=== PATIENT | female | born 1980 | race Caucasian/White ===

== ENCOUNTER 2020-08-17 07:58 | Outpatient (CLI) | payer BC, SELFPAY ==
--- NOTE | 2020-08-17 09:18 | ECG_ITS ---
Measurements Intervals [place] Rate: 61 P: 19 RI: 156 QRS: 18 QRSD: 105 T: 8 QT: 391 QTc: 396 Interpretive Statements SINUS RHYTHM WITH SINUS ARRHYTHMIA DELAYED PRECORDIAL R/S TRANSITION BASELINE ARTIFACT- I, III, AVR, AVL, AVF BORDERLINE ECG Electronically Signed On 08-17-2020 9:57:26 [employer] by Silvestre Mrecer D.O.
[2020-08-17 09:54] LABS: Basophils Percent Auto 0.7 % (0.2-1.2); Eosinophils Absolute Auto 0.1 K/mm3 (0-0.3); Eosinophils Percent Auto 1.9 % (0-4.4); Immature Granulocyte Absolute 0.01 K/mm3 (0.00-0.031); Immature Granulocyte Percent A 0.2 % (0-0.5); Lymphocytes Absolute Auto 1.88 K/mm3 (0.9-3.2); Lymphocytes Percent Auto 33.2 % (18.3-44.2); Mean Corpuscular HGB Conc 31.7 g/dl (32-36); Mean Corpuscular Hemoglobin 26.3 pg (26-34); Mean Platelet Volume 10.2 fl (7.4-10.4); Monocytes Absolute Auto 0.4 K/mm3 (0.1-0.6); Monocytes Percent Auto 7.1 % (2.6-8.5); Neutrophils Absolute Auto 3.2 K/mm3 (1.3-6.7); Neutrophils Percent Auto 56.9 % (45.5-73.1); Platelet Count Result 267 k/mm3 (150-375); Red Blood Count 4.94 M/mm3 (4.2-5.4); Red Cell Distribution Width 13.9 % (11.5-14.5); White Blood Count 5.7 K/mm3 (4.5-10.0)
[2020-08-17 10:05] LABS: Partial Thromboplastin Time 30.8 SECONDS (22.3-36.8)
[2020-08-17 10:07] LABS: Alanine Aminotransferase 23 U/L (4-35); Albumin Level 4.6 g/dL (3.5-5.1); Alkaline Phosphatase 65 U/L (38-126); Anion Gap 7 mmol/L (8-16); Aspartate Amino Transferase 28 U/L (14-36); Bilirubin,Total 0.5 mg/dL (0.2-1.3); Blood Urea Nitrogen 13 mg/dL (7-17); Carbon Dioxide 29 mmol/L (22-30); Chloride 103 mmol/L (98-107); Estimated Glomerular Filt Rate > 60; Glucose 94 mg/dL (65-105); Potassium 3.9 mmol/L (3.4-5.0); Sodium 139 mmol/L (137-145)
[2020-08-17 10:26] LABS: Prothrombin Time 13.6 Seconds (11.1-14.7)
== END 2020-08-17 07:59 | disposition home or self-care (01) ==
PROVIDERS: Visit Provider Urology
DX: N39.3 Stress incontinence (female) (male) (principal); Z01.818 Encounter for other preprocedural examination; R94.31 Abnormal electrocardiogram [ECG] [EKG]
CPT/HCPCS: 36415; 80053; 85025; 85610; 85730; 86850; 86900; 86901; 87086; 87088; 93005

== ENCOUNTER 2020-08-24 00:04 | Outpatient (CLI) | payer BC, SELFPAY ==
[2020-08-24 19:25] LABS: SARS-CoV-2 RNA PCR Negative
== END 2020-08-24 00:05 | disposition home or self-care (01) ==
LOC: ANHCOVIDDT 00:05
PROVIDERS: Visit Provider Urology
DX: Z01.818 Encounter for other preprocedural examination (principal); Z20.828 Contact with and (suspected) exposure to other viral communicable diseases
CPT/HCPCS: 87635; C9803; U0003

== ENCOUNTER 2020-08-27 00:41 | Day surgery (SDC) | payer BC, SELFPAY ==
[2020-08-17 08:13] VITALS: BP 154/98; PULSE 90; RESP 18; TEMP 36.9; O2SAT 98; BMI 37.8
--- NOTE | 2020-08-21 12:12 | P.HP_ITS ---
H&P: HPI History of Present Illness Date/Time: 08/21/20 12:12 Chief complaint: stress incontinence Narrative: Tasneem Phelps is a 39 year old female 005 is admitted for robotic supracervical hysterectomy and bilateral salpingectomy. She will also undergo a robotic sacral colpopexy and urethral sling with Dr. Haq for stress incontinence and prolapse. Risks and benefits were reviewed Review of Systems Review of Systems: All systems reviewed & are unremarkable except as noted in HPI and below PMFSH Family History Family History Mother Family history of elevated blood lipids Patient's mother is in good health Family history of malignant neoplasm of breast in first degree relative Grandparent Family history of malignant neoplasm of breast Family history of osteoporosis Family history of mental disorder Family history of osteoarthritis Family history of malignant neoplasm Family history of coronary artery disease Father Hypertension Patient's father is in good health Family history of alcoholism Family history of kidney disease Family history of coronary artery disease Family history of heart disease in male family member before age 55 Grandparent Family history of malignant neoplasm of breast Social History Social History Smoking packs per day: 1 Smoking cigarettes per day: 20.0 Years smoked: 6 Smoking pack-years: 6.00 Smoking status: Former smoker Smoking end date: 04/04/02 Alcohol intake: current Drinks per week: 4 Substance use: never Spiritual care concerns: No Meds Home Medications and Allergies Home Medications Medication Instructions Recorded Confirmed Type No Home Medications 08/17/20 08/17/20 History Allergies Allergy/AdvReac Type Severity Reaction Status Date / Time No Known Allergies Allergy Unverified 08/17/20 08:12 Exam Const: General: no acute distress Eyes: General: appearance normal, both eyes and all related structures Neck: Neck: supple and no JVD Thyroid: thyroid normal Resp: Effort & Inspection: normal respiratory effort Auscultation: clear to auscultation bilaterally Cardio: Rate: regular rate Rhythm: regular rhythm GI: Inspection: non-distended GI Palp: Yes Soft to palpation, No Tenderness to palpation present (GI) and No Guarding due to palpation present (GI) Auscultation: normal bowel sounds : General: Yes bladder normal to palpation External Female Exam: Abnormal introitus Speculum Exam - Vagina: Abnormal introitus Speculum Exam - Cerv ix: normal appearance of the cervix Bimanual exam- vagina & uterus: Uterine tenderness ( 2nd and 3rd degree prolapse is present) Bimanual Exam- Adnexa, other: normal adnexae Skin: General skin exam: no rashes or lesions noted Extrem: General: normal to inspection and no edema Psych: Mental Status: mental status grossly normal Affect: normal affect Assessment and Plan Additional Plan impression: Third-degree prolapse with stress urinary incontinence Plan: Robotic supracervical hysterectomy and bilateral salpingectomy
--- NOTE | 2020-08-25 08:09 | PM.IMHP ---
H&P: HPI History of Present Illness Date/Time: 08/25/20 08:09 Chief complaint: stress incontinence Narrative: Tasneem Phelps is a 39 year old female with POP and ANU Review of Systems Review of Systems: All systems reviewed & are unremarkable except as noted in HPI and below PMFSH Family History Family History Mother Family history of elevated blood lipids Patient's mother is in good health Family history of malignant neoplasm of breast in first degree relative Grandparent Family history of malignant neoplasm of breast Family history of osteoporosis Family history of mental disorder Family history of osteoarthritis Family history of malignant neoplasm Family history of coronary artery disease Father Hypertension Patient's father is in good health Family history of alcoholism Family history of kidney disease Family history of coronary artery disease Family history of heart disease in male family member before age 55 Grandparent Family history of malignant neoplasm of breast Social History Social History Smoking packs per day: 1 Smoking cigarettes per day: 20.0 Years smoked: 6 Smoking pack-years: 6.00 Smoking status: Former smoker Smoking end date: 04/04/02 Alcohol intake: current Drinks per week: 4 Substance use: never Spiritual care concerns: No Meds Home Medications and Allergies Home Medications Medication Instructions Recorded Confirmed Type No Home Medications 08/17/20 08/17/20 History Allergies Allergy/AdvReac Type Severity Reaction Status Date / Time No Known Allergies Allergy Unverified 08/17/20 08:12 Exam Const: General: cooperative and healthy appearing HENMT: Head: normal to inspection Mouth: Yes Normal oral and palatal mucosa present Eyes: General: appearance normal, both eyes and all related structures Resp: Effort & Inspection: normal respiratory effort and able to speak in complete sentences GI: Inspection: normal to inspection : Bimanual Exam- Adnexa, other: vaginal apex descent (0) Neuro: General: patient oriented x3 Assessment and Plan Assessment and plan (1) Uterine prolapse: Code(s): N81.4 - Uterovaginal prolapse, unspecified Status: Acute Assessment and Plan: Robotic Sacral Colpopexy (2) ANU (stress urinary incontinence, female): Code(s): N39.3 - Stress incontinence (female) (male) Status: Acute Assessment and Plan: Urethral sling
[2020-08-27] VITALS (16 sets, daily range): BP systolic 126–152; BP diastolic 68–97; PULSE 67–93; RESP 11–20; TEMP 36.3–37; O2SAT 94–100
[2020-08-27] MEDS: ACETAMINOPHEN 500 MG TABLET 1000 MG PO (06:30)
[2020-08-27] MEDS: LACTATED RINGERS 1,000 ML 30 ML IV CONT ×2 (06:35→10:28)
[2020-08-27] MEDS: KETOROLAC 15 MG/ML VIAL (*BKC) IV PUSH (06:40)
--- NOTE | 2020-08-27 06:44 | WPDHPUPDATE1 ---
History and Physical Update Update Date/Time: 08/27/20 06:44 History and Physical has been reviewed, including an updated exam of the patient. There are NO changes in the patient's condition. Risks, benefits, and alternatives have been discussed and questions answered. Patient agrees to proceed with procedure.
--- NOTE | 2020-08-27 06:58 | WPDANESEPPF ---
Anes - Initial Pre Proc Eval Procedure: Operation Date: 08/27/20 07:30 Proposed Procedures p Robotic Sacrocolpopexy with Urethral Sling - Carlos Haq MD s Robotic Assisted Supracervical Hysterectomy with Bilateral Salpingectomy - Christiano Marrufo MD Date/Time: 08/27/20 06:58 Surgeon: Carlos Haq MD Pre Op Diagnosis: stress incontinence Patient Data Age: 39 Gender: F Height: 5 ft 7 in Weight: 106.6 kg Last Vital Signs Temp 98.4 F 08/27/20 06:52 Pulse 90 08/27/20 06:52 Resp 18 08/27/20 06:52 BP 149/97 H 08/27/20 06:52 Pulse Ox 99 08/27/20 06:52 Allergies Allergy/AdvReac Type Severity Reaction Status Date / Time No Known Allergies Allergy Unverified 08/27/20 06:45 Home Medications Medication Instructions Recorded Confirmed Type No Home Medications 08/17/20 08/27/20 History Patient hx anesthesia problems: none Family hx anesthesia problems: none PMFSH Family History Family History Mother Family history of elevated blood lipids Patient's mother is in good health Family history of malignant neoplasm of breast in first degree relative Grandparent Family history of malignant neoplasm of breast Family history of osteoporosis Family history of mental disorder Family history of osteoarthritis Family history of malignant neoplasm Family history of coronary artery disease Father Hypertension Patient's father is in good health Family history of alcoholism Family history of kidney disease Family history of coronary artery disease Family history of heart disease in male family member before age 55 Grandparent Family history of malignant neoplasm of breast Social History Social History Smoking packs per day: 1 Smoking cigarettes per day: 20.0 Years smoked: 6 Smoking pack-years: 6.00 Smoking status: Former smoker Smoking end date: 04/04/02 Alcohol intake: current Drinks per week: 4 Substance use: never Living arrangements: with family Spiritual care concerns: No Anes - Eval Final PreProcedure Day of Procedure 08/27/20 06:58 Patient weight: overweight Heart: regular rate and rhythm Lungs: clear to auscultation Airway: Mallampati scale class II Neurological: alert and oriented Last oral intake: >/= 8 hours ASA classification: II Emergent: no Anesthetic plan: proceed Anesthesia type and monitoring: general ETT and standard monitoring Informed Consent: The patient's anesthetic plan and its attendant risks and benefits were discussed with the patient/family/POA. Questions were solicited and answers provided to the satisfaction of the patient/family/POA.
--- NOTE | 2020-08-27 07:18 | WPDHPUPDATE1 ---
History and Physical Update Update Date/Time: 08/27/20 07:18 History and Physical has been reviewed, including an updated exam of the patient. There are NO changes in the patient's condition. Risks, benefits, and alternatives have been discussed and questions answered. Patient agrees to proceed with procedure.
--- NOTE | 2020-08-27 07:20 | WPDHPUPDATE1 ---
History and Physical Update Update Date/Time: 08/27/20 07:20 History and Physical has been reviewed, including an updated exam of the patient. There are NO changes in the patient's condition. Risks, benefits, and alternatives have been discussed and questions answered. Patient agrees to proceed with procedure.
[2020-08-27] MEDS: ceFAZolin 2 GM/D5W 50 ML 2 GM/50 ML BAG IVPB (07:22)
[2020-08-27] MEDS: metroNIDAZOLE 500 MG/ISO 100ML 500 MG/100 ML BAG 100 MG IVPB ×2 (07:44→15:28)
--- NOTE | 2020-08-27 08:28 | PM.PROC ---
Procedure Note - Detailed Date of procedure: 08/27/20 Pre-op diagnosis: stress incontinence Surgeon: Christiano Marrufo MD Postop diagnosis: Uterine prolapse /stress urinary incontinence Procedure: Robotic supracervical hysterectomy and bilateral salpingectomy. This was done in conjunction with Dr. Carlos Haq who performed a robotic sacral colpopexy and sling Anesthesia: General endotracheal EBL: 25cc Complications: None Findings: Markedly enlarged floppy uterus which was retroverted. Normal-appearing tubes and ovaries. Description of procedure the patient was prepped and draped in the normal sterile fashion and placed in the dorsal lithotomy position. Under excellent general trach anesthesia weighted speculum placed in posterior fornix vagina. Anterior lip of the cervix grasped with a single-tooth tenaculum and a Woods's cannula inserted the cervix attached to the single-tooth. This was to be used later for uterine manipulation. Next the 16 [place] catheter was placed and drained of clear urine. The weighted speculum was removed. Dr. Haq proceeded to dock the robot at that point. Please see his operative report for full details. Once the robot was docked the left round ligament was grasped, burned, cut. Anteriorly a bladder flap was formed by sharply dissecting across the cervix and uterus and dissecting it to push in caudally to the opposite round ligament which was clamped, burned, cut. Next the left fallopian tube was teased from the ovarian complex and sharply dissected with cautery to its base in the uterus. This was repeated on the contralateral side remove the Right tube. next the left utero-ovarian ligament was skeletonized. This was serially clamped, burned, cut and brought to the level of the previously cut round ligament. This conserve the left ovary. Conserving the right ovary utero-ovarian ligament the right was serially skeletonized. She has clamped, burned, cut. Was brought to the level of the previously cut ligament. Next the cardinal and broad ligaments were serially skeletonized 1 edge of the uterus the left clamped, burned, cut and brought down to the level of the uterine vessels. These were large and tortuous and individually clamped, burned, cut. In like fashion the cardinal and broad ligaments on the right were serially skeletonized. These were clamped, burned, cut and brought down to the level of uterine vessels. These as well were large and tortuous and individually clamped, burned, cut. Excellent blanching of the uterus was noted. A supracervical incision was made in the uterus placed in the cul-de-sac. Dr. Haq was to proceed and bivalving this uterus to remove it through the abdomen. phillip prolonged proceed from there. Blood loss to this point was 25cc. All pedicles appeared dry and hemostatic.
--- NOTE | 2020-08-27 10:14 | PM.PROC ---
Procedure Note - Detailed Date of procedure: 08/27/20 Pre-op diagnosis: stress incontinence Uterine prolapse Stress urinary incontinence Post-op diagnosis: same Procedure performed: Robotic assisted laparoscopic sacral colpopexy mid urethral sling Cystoscopy Description of procedure: Anesthesia: General She understood the risks of bleeding, infection, damage to surrounding organs, bowel injury, bowel obstruction, recurrence of prolapse, persistent or recurrent stress incontinence, mesh related complications including exposure and extrusion, diskitis, postoperative voiding dysfunction including incontinence and retention, hip and leg pain, dyspareunia, and she agrees to proceed. She was correctly identified and informed consent was obtained. She was brought to the operating room. She was given general anesthesia. She was placed in the dorsal lithotomy position. All pressure points were padded. She was given appropriate perioperative antibiotics. Time-out performed. I anesthetized the skin 3 fingerbreadths cephalad to the umbilicus. I incised the skin. I dissected down to locate the fascia. I grasped the fascia with Jakub clamps. I entered the fascia sharply. I placed Vicryl sutures for later fascial closure. I placed a midline trocar. Under direct vision 2 additional trocars were placed on the right and left upper quadrant. She was placed in steep Trendelenburg and the robot was docked. Her contract manager performed the portion of the procedure and left the specimen and a sac which was extracted. I then sat at the console. With the Sizer in the vagina I created a plane on the anterior and posterior vaginal wall. This was done for several cm taking great care not to injure the vagina, bladder, or rectum. I introduced the mesh into the abdomen. I sewed the anterior leaflet of mesh on the anterior vaginal wall and posterior leaf of the mesh on the posterior vaginal wall with several Amory-Dustin sutures taking great care not to go through and through. I then reflected the colon laterally. I opened up the posterior peritoneum over the sacral promontory. I carried this into the cul-de-sac. I kept the ureters lateral. I freed up the edges. I located the anterior longitudinal ligament of the sacrum. I tensioned the mesh appropriately. I did a vaginal exam to ensure prolapse reduction without undue tension. I then sewed the proximal leaflet of mesh onto the ligament with 3 sutures of 2 0 Amory-Dustin. Next the mass was meticulously retroperitonealized with a running 2 0 Monocryl suture. I allowed the colon to go back into its normal anatomic location. There is no signs of any impingement or stricturing. The abdomen was exited. Fascia was closed. Skin was closed with Monocryl and glue. She was repositioned and prepped for perineal surgery. I turned my attention towards the urethral sling. I marked out the thigh incisions. I anesthetize the skin and made those incisions. I anesthetized the anterior vaginal wall over the mid urethra. I made a 1 cm incision. I dissected out laterally taking great care not to injure the urethra or the vaginal wall. I next passed the helical trocars to 1st on the left and then on the right. This was done from the thigh incision towards the vaginal incision. The sling was connected to the trocars and brought out through the thigh incision. I tensioned the sling appropriately. I cut and removed the plastic sheaths. I then closed the incision with 2 0 Vicryl. I then performed cystoscopy. The bladder is examined. There was no tumors, stones, foreign bodies, surgical artifact. Both ureters were seen to excrete clear yellow urine. There is no surgical artifact in the urethra. Catheter was then replaced. She was awakened and transferred to the PACU in stable condition. Implants: Colpopexy mesh Urethral sling mesh Anesthesia: GETA Surgeon: Carlos Haq MD Drains: Yes (Doe catheter) Packing: No Complications: N
[2020-08-27] MEDS: fentaNYL CITRATE INJ (*CRX) 100 MCG/2 ML VIAL 25 MCG IV PUSH ×4 (10:45→11:34)
--- NOTE | 2020-08-27 11:40 | PC.NURSE ---
This patient, Tasneem Phelps, was received from PACU on 08/27/20 at 1140. Patient/family oriented to unit policies and routines
[2020-08-27] MEDS: KETOROLAC 30 MG/ML VIAL (*BKC) IV PUSH ×2 (14:30→23:25)
[2020-08-27] MEDS: MORPHINE SULFATE (*CRX) 2 MG/ML INJ IV PUSH ×2 (17:30→21:17)
[2020-08-27] MEDS: ACETAMINOPHEN 325 MG TABLET 650 MG PO (17:31)
[2020-08-28] MEDS: metroNIDAZOLE 500 MG/ISO 100ML 500 MG/100 ML BAG 100 MG IVPB (00:13)
[2020-08-28] MEDS: HYDROcodone/acetaminophen (*CRX) 5-325 MG TABLET 1 TAB PO ×2 (03:36→07:15)
[2020-08-28 03:59] VITALS: BP 118/75; PULSE 78; RESP 16; TEMP 36.8; O2SAT 100
--- NOTE | 2020-08-28 06:47 | PM.OBPNVD ---
OB - PN: Subj Subjective Date/time seen: 08/28/20 06:47 Patient comments: no complaints and pain well controlled OB - PN A/P Plan day: 1 Plan: routine care, discharge home and follow up 6 weeks (2 weeks) Time Spent With Patient Time: Total time spent is greater than 50% in coordination of care (as documented) at patient's floor/unit and/or counseling patient: Time with patient: less than 15 minutes Review of Systems Review of Systems: All systems reviewed & are unremarkable except as noted in HPI and below Exam Const: General: no acute distress Eyes: General: appearance normal, both eyes and all related structures Neck: Neck: supple and no JVD Thyroid: thyroid normal Resp: Effort & Inspection: normal respiratory effort Auscultation: clear to auscultation bilaterally Cardio: Rate: regular rate Rhythm: regular rhythm GI: Inspection: normal to inspection and incision (clean dry intact) GI Palp: Yes Tenderness to palpation present (GI) : General: Yes bladder normal to palpation External Female Exam: normal external appearance Speculum Exam - Vagina: normal vaginal discharge and No vaginal bleeding Speculum Exam - Cervix: nontender Bimanual exam- vagina & uterus: bladder normal to palpation and No Cervical tenderness present OB/external & speculum: No vaginal bleeding Skin: General skin exam: no rashes or lesions noted Extrem: General: normal to inspection and no edema Psych: Mental Status: mental status grossly normal Affect: normal affect
--- NOTE | 2020-08-28 06:48 | PM.DS ---
DS: Admitting Diagnosis Admitting Diagnosis Admitting Diagnosis: stress incontinence Uterine prolapse DS: Summary Time Spent with Patient Time attestation: Total time spent providing and/or coordinating discharge services: the patient was admitted for robotic supracervical hysterectomy bilateral salpingectomy. She also underwent robotic sacral colpopexy and sling with Dr. Haq. Her hospital course was unremarkable. She remained afebrile. She was up, eating regular diet, ambulating passing gas and generally without complaints. She was stable at discharge Exam Const: General: no acute distress Eyes: General: appearance normal, both eyes and all related structures Neck: Neck: supple and no JVD Thyroid: thyroid normal Resp: Effort & Inspection: normal respiratory effort Auscultation: clear to auscultation bilaterally Cardio: Rate: regular rate Rhythm: regular rhythm GI: Inspection: non-distended GI Palp: Yes Soft to palpation, No Tenderness to palpation present (GI) and No Guarding due to palpation present (GI) Auscultation: normal bowel sounds : General: Yes bladder normal to palpation External Female Exam: normal external appearance Speculum Exam - Vagina: normal vaginal discharge and No vaginal bleeding Speculum Exam - Cervix: nontender Bimanual exam- vagina & uterus: bladder normal to palpation and No Cervical tenderness present OB/external & speculum: No vaginal bleeding Skin: General skin exam: no rashes or lesions noted Extrem: General: normal to inspection and no edema Psych: Mental Status: mental status grossly normal Affect: normal affect DS: Data Data Completed and Pending Pending studies at discharge: Pending at discharge 08/27/20 10:20 Surgical [PTH] Routine Discharge Plan Discharge Patient Disposition: Home, Self-Care Stand Alone Forms: General Discharge Instructions Follow-up/Referrals: Carlos Haq MD [Physician] - Christiano Marrufo MD [Physician] - Discharge Medications: New hydrocodone-acetaminophen [[place]] 5-325 mg tablet 1 tablet PO Q4H PRN (Reason: pain) Qty: 30 RF: 0 docusate sodium [Colace] 100 mg capsule 100 mg PO BID Qty: 60 RF: 0
[2020-08-28] MEDS: DOCUSATE SODIUM 100 MG CAPSULE PO (07:15)
[2020-08-28] MEDS: IBUPROFEN 600 MG TABLET (07:16)
[2020-08-28 09:33] VITALS: BP 121/76; PULSE 69; RESP 16; TEMP 37.6; O2SAT 97
[2020-08-28 09:39] VITALS: PULSE 69; RESP 16; O2SAT 97
[2020-08-28] MEDS: ENOXAPARIN 30 MG/0.3 ML SYRINGE SUB-Q (10:35)
== END 2020-08-28 10:46 | disposition home or self-care (01) ==
LOC: ANHSURGERY 05:58 → ANHOB2 11:47
PROVIDERS: Obstetrics & Gynecology; Visit Provider Urology
PROC: (CPT 57425; principal; 2020-08-27 07:30)
PROC: 0UT94ZZ Resection of Uterus, Percutaneous Endoscopic Approach (ICD-10-PCS; CPT 57425; 2020-08-27 07:30)
DX: N39.3 Stress incontinence (female) (male) (principal); N81.3 Complete uterovaginal prolapse; N80.0 Endometriosis of uterus; Z87.891 Personal history of nicotine dependence
CPT/HCPCS: 57288; 57425; 58542; S2900; 88307; 99199; A9270; C1771; C1781; J0330; J0690; J1100; J1650; J1885; J2250; J2270; J2405; J2704; J2710; J3010; J7030; J7120

== ENCOUNTER 2024-05-27 01:03 | Day surgery (SDC) | payer BC, SELFPAY ==
[2024-05-10 09:06] VITALS: BMI 35.0
--- NOTE | 2024-05-10 14:01 | PC.NURSE ---
Pt yris Vines. Informed to stop 10 days prior.
[2024-05-27 07:40] VITALS: BP 150/90; PULSE 75; RESP 20; TEMP 36.1; O2SAT 100; BMI 37.4
[2024-05-27] MEDS: LACTATED RINGERS 1,000 ML 150 ML IV CONT (08:06)
--- NOTE | 2024-05-27 08:15 | WPDANESEPPF ---
Anes - Initial Pre Proc Eval Procedure: Operation Date: 05/27/24 09:00 Proposed Procedures p Screening Colonoscopy - Sha Mejia MD Date/Time: 05/27/24 08:15 Surgeon: Sha Mejia MD Pre Op Diagnosis: neoplasm screening Patient Data Age: 43 Gender: F Height: 1.57 m Weight: 92.9 kg Last Vital Signs Temp 96.9 F L 05/27/24 07:40 Pulse 75 05/27/24 07:40 Resp 20 05/27/24 07:40 BP 150/90 H 05/27/24 07:40 Pulse Ox 100 05/27/24 07:40 O2 Del Method Room Air 05/27/24 07:40 Allergies Allergy/AdvReac Type Severity Reaction Status Date / Time No Known Allergies Allergy Verified 05/27/24 07:52 Home Medications Medication Instructions Recorded Confirmed Type chlorthalidone 25 mg tablet 25 mg PO DAILY 05/10/24 05/27/24 History docusate sodium 100 mg capsule 100 mg PO DAILY PRN Constipation 05/10/24 05/27/24 History (Colace) tirzepatide 7.5 mg/0.5 mL 7.5 mg subcut WEEKLY 05/10/24 05/27/24 History subcutaneous pen injector (Mounjaro) Patient hx anesthesia problems: none Family hx anesthesia problems: none Results Review: All pre-operative results and documents have been reviewed as part of the pre-operative evaluation. [facility], [facility] Family History Family History Mother Family history of elevated blood lipids Patient's mother is in good health Family history of malignant neoplasm of breast in first degree relative Grandparent Family history of malignant neoplasm of breast Family history of osteoporosis Family history of mental disorder Family history of osteoarthritis Family history of malignant neoplasm Family history of coronary artery disease Father Hypertension Patient's father is in good health Family history of alcoholism Family history of kidney disease Family history of coronary artery disease Family history of heart disease in male family member before age 55 Grandparent Family history of malignant neoplasm of breast Social History Social History Smoking packs per day: 1 Smoking cigarettes per day: 20.0 Years smoked: 6 Smoking pack-years: 6.00 Smoking status: Former smoker Smoking end date: 04/04/02 Alcohol intake: current Drinks per week: 5 Substance use: never Substance use type: does not use Living arrangements: with family Spiritual care concerns: No Anes - Eval Final PreProcedure Day of Procedure 05/27/24 08:15 Patient weight: normal Heart: regular rate and rhythm Lungs: clear to auscultation Airway: Mallampati scale class II Neurological: alert and oriented Last oral intake: >/= 8 hours ASA classification: II Emergent: no Anesthetic plan: proceed Anesthesia type and monitoring: general GIVS and standard monitoring Results Review: All pre-operative results and documents have been reviewed as part of the pre-operative evaluation. Obesity. Pt very active w walking treadmill/track, no cp or sob. Informed Consent: The patient's anesthetic plan and its attendant risks and benefits were discussed with the patient/family/POA. Questions were solicited and answers provided to the satisfaction of the patient/family/POA.
--- NOTE | 2024-05-27 08:49 | PM.HPGS ---
History of Present Illness History of Present Illness Consent: Risks, benefits, and alternatives have been discussed and questions answered. Patient agrees to proceed with procedure. Chief complaint: neoplasm screening Narrative: Tasneem Phelps is a 43 year old female here for first screening colonoscopy Review of Systems Review of Systems: All systems reviewed & are unremarkable except as noted in HPI and below PMFSH Past Medical History Medical History (Updated 05/27/24 @ 08:50 by Sha Mejia MD) Colon cancer screening Family History Family History Mother Family history of elevated blood lipids Patient's mother is in good health Family history of malignant neoplasm of breast in first degree relative Grandparent Family history of malignant neoplasm of breast Family history of osteoporosis Family history of mental disorder Family history of osteoarthritis Family history of malignant neoplasm Family history of coronary artery disease Father Hypertension Patient's father is in good health Family history of alcoholism Family history of kidney disease Family history of coronary artery disease Family history of heart disease in male family member before age 55 Grandparent Family history of malignant neoplasm of breast Social History Social History Smoking packs per day: 1 Smoking cigarettes per day: 20.0 Years smoked: 6 Smoking pack-years: 6.00 Smoking status: Former smoker Smoking end date: 04/04/02 Alcohol intake: current Drinks per week: 5 Substance use: never Substance use type: does not use Living arrangements: with family Spiritual care concerns: No Meds Home Medications and Allergies Home Medications Medication Instructions Recorded Confirmed Type chlorthalidone 25 mg tablet 25 mg PO DAILY 05/10/24 05/27/24 History docusate sodium 100 mg capsule 100 mg PO DAILY PRN Constipation 05/10/24 05/27/24 History (Colace) tirzepatide 7.5 mg/0.5 mL 7.5 mg subcut WEEKLY 05/10/24 05/27/24 History subcutaneous pen injector (Mounjaro) Allergies Allergy/AdvReac Type Severity Reaction Status Date / Time No Known Allergies Allergy Verified 05/27/24 07:52 Vital Signs Vital Signs - 24 hr 05/27/24 07:40 Temperature 96.9 F L Pulse Rate 75 Respiratory Rate 20 Blood Pressure 150/90 H Pulse Oximetry 100 Oxygen Delivery Room Air Exam Const: General: comfortable and no acute distress HENMT: Face/Nose/Sinus: Normal nares present Eyes: General: appearance normal, both eyes and all related structures Neck: Neck: no JVD Resp: Auscultation: clear to auscultation bilaterally Cardio: Rate: regular rate Rhythm: regular rhythm GI: Inspection: non-distended GI Palp: Yes Soft to palpation Skin: General skin exam: normal color Neuro: General: gait normal Speech: normal speech Extrem: General: normal to inspection Psych: Mental Status: mental status grossly normal Assessment and Plan Assessment and plan (1) Colon cancer screening: Code(s): Z12.11 - Encounter for screening for malignant neoplasm of colon Status: Acute Assessment and Plan: colonoscopy
[2024-05-27 09:07] VITALS: BP 126/76; PULSE 75; RESP 15; O2SAT 99
[2024-05-27 09:17] VITALS: BP 150/94; PULSE 68; RESP 21; O2SAT 100
[2024-05-27 09:27] VITALS: BP 150/100; PULSE 66; RESP 23; O2SAT 100
== END 2024-05-27 09:35 | disposition home or self-care (01) ==
PROVIDERS: PCP Physician Assistant; Visit Provider Internal Medicine Gastroenterology
PROC: 0DJD8ZZ Inspection of Lower Intestinal Tract, Via Natural or Artificial Opening Endoscopic (ICD-10-PCS; CPT 45378; principal; 2024-05-27 09:00)
DX: Z12.11 Encounter for screening for malignant neoplasm of colon (principal); D12.5 Benign neoplasm of sigmoid colon; K64.8 Other hemorrhoids; Z79.85 Long-term (current) use of injectable non-insulin antidiabetic drugs; Z87.891 Personal history of nicotine dependence; Z80.3 Family history of malignant neoplasm of breast; Z82.49 Family history of ischemic heart disease and other diseases of the circulatory system
CPT/HCPCS: 45380; 88305; J2704; J7120

== ENCOUNTER 2025-08-13 15:32 | Emergency (ER) | payer BC, SELFPAY ==
--- NOTE | ~2025-08-13 | XR_ITS ---
EXAMINATION: XR finger 1st LT min 2V, 08/13/2025 15:56 FOREMAN/PILE DRIVING AND ERECTION HISTORY: Left thumb [id number] COMPARISON: No comparisons available. Findings: No acute fracture or malalignment. No significant degenerative changes. Soft tissues unremarkable. Impression: No acute fracture or malalignment. Reviewed, dictated and finalized at location P. MAN/PILE DRIVING AND ERECTION Impression: No acute fracture or malalignment.
[2025-08-13 15:44] VITALS: BP 146/91; PULSE 89; RESP 16; TEMP 36.6; O2SAT 100
--- NOTE | 2025-08-13 15:51 | ED.GENADULT ---
HPI - General Adult General Chief complaint: Extremity Injury, Upper Stated complaint: L Hand Pain Time Seen by Provider: 08/13/25 15:51 Source: patient Mode of arrival: ambulatory Limitations: no limitations History of Present Illness HPI narrative: 44-year-old female patient presents to the [facility] with complaints of left hand pain specifically to the left thumb. 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 Patient denies any specific injury that she remembers but she does remember at the end of the night feeling kind of sore to the thumb. Patient states that got worse throughout the night and today. Patient states she has been icing it took Motrin for pain. Related Data Home Medications ?Medication ?Instructions ?Recorded ?Confirmed ?Last Taken ?Type chlorthalidone 25 mg tablet 25 mg PO DAILY 05/10/24 08/13/25 Unknown History docusate sodium 100 mg capsule 100 mg PO DAILY PRN Constipation 05/10/24 08/13/25 Unknown History (Colace) tirzepatide 7.5 mg/0.5 mL 7.5 mg subcut WEEKLY 05/10/24 08/13/25 05/15/24 History subcutaneous pen injector (Mounjaro) bupropion HCl 300 mg 24 hr tablet, mg PO 08/13/25 Unknown History extended release Allergies Allergy/AdvReac Type Severity Reaction Status Date / Time No Known Allergies Allergy Verified 08/13/25 15:56 Review of Systems Review of Systems: CONSTITUTIONAL: Denies fever, chills, or sweats. EYES: Denies visual changes, redness, or discharge. ENT: Denies rhinorrhea, congestion, sore throat, or otalgia. CARDIOVASCULAR: Denies chest pain, palpitations, or edema. RESPIRATORY: Denies cough or dyspnea. GASTROINTESTINAL: Denies abdominal pain, nausea, vomiting, or diarrhea. GENITOURINARY: Denies dysuria or hematuria. SKIN: Denies rash or itching. MUSCULOSKELETAL: Denies back pain, joint pain, or myalgia. Positive left thumb pain NEUROLOGIC: Denies headache, numbness, or weakness. PSYCHIATRIC: Denies anxiety or depression. [facility] Past Medical History Medical History Colon cancer screening Family History Family History Mother Family history of elevated blood lipids Patient's mother is in good health Family history of malignant neoplasm of breast in first degree relative Grandparent Family history of malignant neoplasm of breast Family history of osteoporosis Family history of mental disorder Family history of osteoarthritis Family history of malignant neoplasm Family history of coronary artery disease Father Hypertension Patient's father is in good health Family history of alcoholism Family history of kidney disease Family history of coronary artery disease Family history of heart disease in male family member before age 55 Grandparent Family history of malignant neoplasm of breast Social History Social History Smoking packs per day: 1 Smoking cigarettes per day: 20.0 Years smoked: 6 Smoking pack-years: 6.00 Smoking end date: 04/04/02 Alcohol intake: current Drinks per week: 5 Substance use: never Substance use type: does not use Living arrangements: with family Spiritual care concerns: No Comments At the time of my signature I agree with nursing past medical history, surgical, social, and family history. There is no relevant family history pertinent to the presenting complaint. Exam Narrative: GENERAL: Well-appearing, well-nourished, and in no acute distress. HEAD: Normocephalic, atraumatic. EYES: PERRLA and EOMI. ENT: Nares clear, no rhinorrhea or epistaxis. Mucous membranes moist. NECK: Supple. No lymphadenopathy CHEST: Clear to auscultation. No respiratory distress. HEART: Regular rate and rhythm. No murmur heard. Normal peripheral pulses. ABDOMEN: Soft, nontender, nondistended, normal active bowel sounds. EXTREMITIES: The L thumb is without obvious asymmetry or deformity when compared to the R thumb. there is swelling noted to the base of the left thumb, noerythema, atrophy, or obvious deformity. No surface trauma, open wounds, nail avulsion, tissue avulsion, partial or complete amputation, subungual hematoma, bony deformity. Normal cascade of fingers. Normal flexion and extension of fingers. FDS and FDP intact aganist restistance. No focal fullness, thobbing pain, swelling of fingertip. tenderness to palpation along the 5th metacarpal. Pulses and cap refill. SKIN: Warm, dry, no rash. NEURO: No focal deficits. Alert and oriented x3. Course Course Level of Care: Express Care Visit Vital Signs Vital signs: Vital Signs Temperature 36.6 C 08/13/25 15:44 Pulse Rate 89 08/13/25 15:44 Respiratory Rate 16 08/13/25 15:44 Blood Pressure 146/91 H 08/13/25 15:44 Pulse Oximetry 100 08/13/25 15:44 Temperature 36.6 C 08/13/25 15:44 Pulse Rate 89 08/13/25 15:44 Respiratory Rate 16 08/13/25 15:44 Blood Pressure 146/91 H 08/13/25 15:44 Pulse Oximetry 100 08/13/25 15:44 vital signs reviewed. The patient has been informed that they may have pre-hypertension or Hypertension based on a BP reading in the department. I recommend that the patient call the primary care provider listed on their discharge instructions or a physician of their choice this week to arrange follow up for further evaluation of possible pre-hypertension or Hypertension Medical Decision Making MDM Narrative Medical decision making narrative: Discussed with patient that her x-ray is negative for any acute fractures. Discussed with her that this is most likely a sprain. We will wrap it with an Magdaleno wrap continues to take Motrin and Tylenol as needed for pain and ice the area. Patient verbalized understanding denies any other questions or concerns at this time. Differential Diagnosis Differential Diagnosis: Differential diagnosis: Paronychia, felon, cellulitis, flexor tenosynovitis, mallet finger, boutonniere deformity, flexor tendons, dislocated digits, unstable fracture, unstable ligamentous injury, closed space infection, carpal tunnel syndrome, contusion. Vital Signs Vital Signs: Vital Signs Temperature 36.6 C 08/13/25 15:44 Pulse Rate 89 08/13/25 15:44 Respiratory Rate 16 08/13/25 15:44 Blood Pressure 146/91 H 08/13/25 15:44 Pulse Oximetry 100 08/13/25 15:44 Temperature 36.6 C 08/13/25 15:44 Pulse Rate 89 08/13/25 15:44 Respiratory Rate 16 08/13/25 15:44 Blood Pressure 146/91 H 08/13/25 15:44 Pulse Oximetry 100 08/13/25 15:44 Imaging Data Radiologist's impression: Express Care [facility] [place] [address] XRay Report Signed Patient: Tasneem Phelps : 1980 MR#: [id number] Age: 44 Acct:[id number] Loc: [facility] ADM Date: 08/13/[address]: Ordering Physician: Nahomy Momin APRN Date of Service: 08/13/25 Procedure(s): XR finger 1st LT min 2V Accession Number(s): [id number] cc: PUNCH PRESS OPERATOR HELPER PHYSICIAN; Nahomy Momin ROUTER SETTER~ EXAMINATION: XR finger 1st LT min 2V, 08/13/2025 15:56 CARTOGRAPHY SUPERVISOR HISTORY: Left thumb [id number] COMPARISON: No comparisons available. Findings: No acute fracture or malalignment. No significant degenerative changes. Soft tissues unremarkable. Impression: No acute fracture or malalignment. Reviewed, dictated and finalized at location P. OGRAPHY SUPERVISOR Discharge Plan Discharge Clinical Impression: Left thumb sprain Patient Disposition: Home Condition: Stable Instructions: Antibiotic Form, Skier's Thumb (ED), Finger Sprain (ED) Additional Instructions: Ice to the area 20-30 minutes 4-6 times a day Elevate above heart Elastic wrap or orthopedic splint as directed for comfort for the next 5-7 days Tylenol for lesser pain Ibuprofen regularly for the next 2-3 days for the inflammation Follow up with your primary care provider if the condition is not improving within 1 week or sooner if the Condition worsens with numbness, tingling, decrease sensation with weakness to seek ER. Patient Language: Albanian Prescriptions: No Action bupropion HCl 300 mg tablet extended release 24 hr PO chlorthalidone 25 mg tablet 25 mg PO DAILY Mounjaro 7.5 mg/0.5 mL Pen Injector 7.5 mg SUBCUT WEEKLY docusate sodium [Colace] 100 mg capsule 100 mg PO DAILY PRN (Reason: Constipation) Follow-up/Referrals: PHYSICIAN,PUNCH PRESS OPERATOR HELPER [Primary Care Provider, Internal Medicine] Time of Disposition: 16:14
== END 2025-08-13 16:23 | disposition home or self-care (01) ==
PROVIDERS: Emergency Provider Nurse Practitioner Family
DX: S63.602A Unspecified sprain of left thumb, initial encounter (principal); X58.XXXA Exposure to other specified factors, initial encounter; Z87.891 Personal history of nicotine dependence
CPT/HCPCS: 73140; 99213; G0463